=== PATIENT | male | born 1955 | race Caucasian/White ===

== ENCOUNTER → 2017-01-03 | Day surgery (SDC) | payer MEDICARE, MEDICAID ==
[~2017-01-03] VITALS: Ht 167.6 cm; Wt 89.2 kg
[~2017-01-03] MED LIST: AMLO5TAB4 PO; AMLODIPINE DAILY; ASPI81TA3 PO; ASPIRIN DAILY; ATEN100T PO; ATENOLOL DAILY; CLON-379 PO; CLONIDINE; DOCU-159 PO; EPHEDrine SULFATE 50 MG/5 ML SYG ONE; FENO145T19 PO; FENOFIBRATE; FURO40TA4 PO; HYDR-3672 PO; HYDR-906 PO; INSULIN; LORA10TA3 PO; LOSARTAN DAILY; NOVMIX SC; OMEPRAZOLE DAILY; PRAV40TA76 PO; PROPOFOL 40 ML ONE; SEVE800T7 PO; TRAZ50TA18 PO; [UNRECOGNIZED DRUG - OTHER]
[2017-01-03 08:42] VITALS: Ht 167.6 cm; Wt 89.2 kg
[2017-01-03 09:24] VITALS: BP 145/65; PULSE 68; RESP 11
--- NOTE | 2017-01-03 09:42 | OPPN ---
Date/Time of Note Date/Time of Note DATE: 01/03/17 TIME: 09:41 Operative Report Preoperative Diagnosis Chronic heartburn Dysphagia Screening colonoscopy Postoperative Diagnosis Hiatal hernia Reflux esophagitis with erosions Gastritis Internal hemorrhoids No colon neoplasm is identified Operation/Procedure Performed Esophagogastroduodenoscopy and biopsy Colonoscopy Surgeon see signature line patient assistant None Anesthesia: MAC Estimated blood loss: none Transfusion Required none Specimen Gastric mucosal biopsy Grafts/Implants none Complications none LEONID LOPEZ MD Jan 03, 2017 09:42
--- NOTE | 2017-01-03 09:42 | OPPN ---
Date/Time of Note Date/Time of Note DATE: 01/03/17 TIME: 09:41 Operative Report Preoperative Diagnosis Chronic heartburn Dysphagia Screening colonoscopy Postoperative Diagnosis Hiatal hernia Reflux esophagitis with erosions Gastritis Internal hemorrhoids No colon neoplasm is identified Operation/Procedure Performed Esophagogastroduodenoscopy and biopsy Colonoscopy Surgeon see signature line timber management assistant None Anesthesia: MAC Estimated blood loss: none Transfusion Required none Specimen Gastric mucosal biopsy Grafts/Implants none Complications none LEONID LOPEZ MD Jan 03, 2017 09:42
--- NOTE | 2017-01-03 09:42 | OPPN ---
Date/Time of Note Date/Time of Note DATE: 01/03/17 TIME: 09:41 Operative Report Preoperative Diagnosis Chronic heartburn Dysphagia Screening colonoscopy Postoperative Diagnosis Hiatal hernia Reflux esophagitis with erosions Gastritis Internal hemorrhoids No colon neoplasm is identified Operation/Procedure Performed Esophagogastroduodenoscopy and biopsy Colonoscopy Surgeon see signature line general assistant None Anesthesia: MAC Estimated blood loss: none Transfusion Required none Specimen Gastric mucosal biopsy Grafts/Implants none Complications none LEONID LOPEZ MD Jan 03, 2017 09:42
--- NOTE | 2017-01-03 09:59 | GILP ---
DATE OF PROCEDURE: NAME OF PROCEDURES: 1. Esophagogastroduodenoscopy and biopsy. 2. Colonoscopy. SURGEON: Leonid Cortez MD PREOPERATIVE DIAGNOSES: 1. Chronic heartburn. 2. Dysphagia. 3. Screening colonoscopy. POSTOPERATIVE DIAGNOSES: 1. Hiatal hernia with reflux esophagitis and erosions. 2. Gastritis with erosions. 3. Gastric mucosal biopsies were taken for Helicobacter pylori test. 4. Colonoscopy all the way to the cecum. 5. Internal hemorrhoids. 6. No colon neoplasm was identified. INDICATION FOR THE PROCEDURE: Mr. David Davis is a 61-year-old male patient who had chronic heartbur n associated with dysphagia. He also needed a screening colonoscopy. The procedures and possible complications were well explained to the patient. He understood and con sented to the procedure. DESCRIPTION OF PROCEDURE: Under the influence of anesthesia, the gastroscope was carefully introduc ed into the esophagus and under direct vision, it was advanced to the stomach and through the pyloru s into the duodenal bulb and descending duodenum. FINDINGS: ESOPHAGUS: The patient had hiatal hernia and reflux esophagitis with erosions. STOMACH: He had gastritis with erosions. Gastric mucosal biopsies were taken for H. pylori test. DUODENUM: Normal. The colonoscope was carefully introduced in the rectum and under direct vision, it was advanced all the way to the cecum. FINDINGS: The patient had internal hemorrhoids. No colon neoplasm was identified. He tolerated the procedures very well and there was no complication from the procedures. At the end of the procedure, he was awake with stable vital signs and he was discharged home to the care of hi s family. IMPRESSION: Please see postoperative diagnoses. PLAN: 1. Continue omeprazole. 2. Add Zantac 300 mg p.o. at bedtime. 3. Await H. pylori test report. Dictated By: LEONID DUOGHERTY/VIRGIL Conf#: [id number] DID#: [id number]
[2017-01-03 10:00] VITALS: BP 82/55
[2017-01-03 10:24] VITALS: BP 133/46; RESP 14
== END | disposition home or self-care (01) ==
LOC: UNMERGE 08:08 → MERGE 08:08 → GIL 08:08
PROVIDERS: ATTEND Internal Medicine Gastroenterology
DX: Z12.11 Encounter for screening for malignant neoplasm of colon (principal); K44.9 Diaphragmatic hernia without obstruction or gangrene; K29.60 Other gastritis without bleeding; K64.8 Other hemorrhoids; K21.0 Gastro-esophageal reflux disease with esophagitis; I10 Essential (primary) hypertension; E11.9 Type 2 diabetes mellitus without complications; E78.5 Hyperlipidemia, unspecified; I12.0 Hypertensive chronic kidney disease with stage 5 chronic kidney disease or end stage renal disease; N18.6 End stage renal disease; Z99.2 Dependence on renal dialysis
CPT/HCPCS: 43239; 45378; 82962; 87081; G0121

== ENCOUNTER 2018-05-07 15:43 | Inpatient (IN) | payer MEDICARE, MEDICAID ==
[~2018-05-07] VITALS: Ht 180.3 cm; Wt 89.0 kg
[~2018-05-07 15:43] MED LIST changes: +ASPI-903 PO; -ASPI81TA3 PO; -EPHEDrine SULFATE 50 MG/5 ML SYG ONE; -FENO145T19 PO; +FENO145T37 PO; +HYDR-4011 PO; -HYDR-906 PO; -PROPOFOL 40 ML ONE; +TRAZ-111 PO; -TRAZ50TA18 PO
--- NOTE | 2018-05-07 16:34 | ERD ---
ER Documentation Chief Complaint Chief Complaint bib ra 81 from dialysis center, syncope pre dialysis, helped to the ground HPI 52-year-old male history of diabetes, hypertension, hyperlipidemia and end-stage renal disease on dialysis M// resents ED via rescue ambulance for evaluation of weakness and syncope. Patient was just discharged yesterday from [facility] after a 5-day admission for chills. Patient was diagnosed with DVT of the left lower extremity and discharged on Eliquis which has not yet filled. Today he was at dialysis but when called from the waiting room was unable to stand up from the chair due to generalized weakness and apparently had brief loss of consciousness. His blood pressure was found to be low and paramedics were called; improved after normal saline bolus. Denies chest pain, palpitat ions, shortness of breath, abdominal pain, nausea or vomiting. Since discharge from the hospital he has had mild lightheadedness and dizziness but no no headache or visual changes. Ongoing left lower extremity weakness but no other new focal weakness or numbness. No URI symptoms, cough or hemoptysis. Denies leg pain or swelling. No fevers or chills. In contrast to the triage note there was no syncope. ROS All systems reviewed and are negative except as per history of present illness. Medications Home Meds Active Scripts Apixaban* (Eliquis*) 5 Mg Tablet, 5 MG PO BID, #60 TAB Prov:LESLEE MURPHY V. CLINICAL NURSING DIRECTOR 05/09/18 Hydralazine Hcl* (Hydralazine Hcl*) 50 Mg Tab, 50 MG PO Q8 for 30 Days, TAB Prov:MANUEL BRANHAM 01/31/16 Reported Medications Insulin Aspart (Novolog Mix (70/30)) 100 Units/Ml Soln, 45 SC WITH BREAKFAST DINNE, EA 01/25/16 Loratadine* (Loratadine*) 10 Mg Tablet, 10 MG PO DAILY, #30 TAB 01/25/16 Furosemide* (Furosemide*) 40 Mg Tablet, 40 MG PO BID, TAB 01/25/16 Fenofibrate Nanocrystallized* (Fenofibrate*) 145 Mg Tablet, 145 MG PO DAILY, TAB 01/25/16 Docusate Sodium* (Docusate Sodium*) 100 Mg Capsule, 100 MG PO BID, #60 CAP 01/25/16 Clonidine Hcl* (Clonidine Hcl*) 0.1 Mg Tab, 0.1 MG PO DAILY PRN for PRN, TAB 01/25/16 Atenolol* (Atenolol*) 100 Mg Tablet, 100 MG PO DAILY, #30 TAB 01/25/16 Aspirin* (Aspirin* Chew) 81 Mg Tab.chew, 81 MG PO DAILY, TAB.CHEW 01/25/16 Amlodipine Besylate* (Norvasc*) 5 Mg Tablet, 5 MG PO DAILY, TAB 01/25/16 Trazodone Hcl* (Trazodone Hcl*) 50 Mg Tablet, 50 MG PO DAILY PRN for PRN, #30 TAB 01/25/16 Sevelamer Carbonate* (Renvela*) 800 Mg Tablet, 2.4 GM PO WITH MEALS, TAB 01/25/16 Pravastatin Sodium* (Pravastatin Sodium*) 40 Mg Tablet, 40 MG PO DAILY, TAB 01/25/16 Hydrocodone/Acetaminophen ([place] 5-325 Tablet) 1 Each Tablet, 1 EACH PO DAILY PRN for PRN, TAB 01/25/16 Discontinued Reported Medications [Aspirin Daily] No Conflict Check 01/03/17 [Travastatin Daily] No Conflict Check 01/03/17 [Fenofibrate Daily] No Conflict Check 01/03/17 [Insulin] No Conflict Check 01/03/17 [Atenolol Daily] No Conflict Check 01/03/17 [Amlodipine Daily] No Conflict Check 01/03/17 [Losartan Daily] No Conflict Check 01/03/17 [Clonidine Daily] No Conflict Check 01/03/17 [Omeprazole Daily] No Conflict Check 01/03/17 Allergies Allergies: Coded Allergies: No Known Drug Allergies (Unverified Allergy, Unknown, 01/08/17) PMhx/Soc Reviewed in chart. As per HPI. History of Surgery: Yes (CHOLECYSTECTOMY, LT. SHOULDER, LT. TOE, LT. HAND) Anesthesia Reaction: No Hx Neurological Disorder: Yes (STROKE 2008) Hx Respiratory Disorders: No Hx Cardiac Disorders: No Hx Psychiatric Problems: No Hx Miscellaneous Medical Probl: Yes (HTN, HYPERLIPIDEMIA, HTN) Hx Alcohol Use: No Hx Substance Use: No Hx Tobacco Use: No Smoking Status: Never smoker FmHx No sudden cardiac or cancer Physical Exam Vitals Temperature: 98.3. Pulse: 65. Respirations: 18. Blood pressure 103/52. O2 saturation 100%. Physical Exam Const: Moderate distress. Head: Atraumatic Eyes: Normal Conjunctiva. Extraocular movements are intact. Pupils are equal reactive. ENT: Normal External Ears, Nose and Mouth. Neck: Full range of motion. No JVD. No meningismus. Resp: Breath sounds are diminished at the bases with mild crackles but no rhonchi or wheezes. Cardio: Regular rate and rhythm, I/ systolic murmur. Abd: Soft, non tender, non distended. No rebound or guarding. No masses or abnormal pulsations. Normal bowel sounds Skin: No petechiae or rashes Back: No midline or flank tenderness Ext: Left lower extremity swelling but no tenderness. Pulses 4+ in all extremities. Neur: Awake and alert. Cranial nerves II through XII are grossly intact. No focal deficit observed. Psych: Anxious but not depressed. Result Diagram: 05/09/1851905/09/18519 Results 24 hrs Laboratory Tests Test 05/07/18 16:00 05/07/18 16:40 Hepatitis B Surface Antigen NEGATIVE White Blood Count 8.8 10^3/ul Red Blood Count 2.72 10^6/ul Hemoglobin 8.4 g/dl Hematocrit 26.1 % Mean Corpuscular Volume 96.0 fl Mean Corpuscular Hemoglobin 30.9 pg Mean Corpuscular Hemoglobin Concent 32.2 g/dl Red Cell Distribution Width 12.7 % Platelet Count 223 10^3/UL Mean Platelet Volume 11.8 fl Immature Granulocytes % 0.300 % Neutrophils % 65.0 % Lymphocytes % 23.5 % Monocytes % 8.4 % Eosinophils % 2.5 % Basophils % 0.3 % Nucleated Red Blood Cells % 0.0 /100WBC Immature Granulocytes # 0.030 10^3/ul Neutrophils # 5.7 10^3/ul Lymphocytes # 2.1 10^3/ul Monocytes # 0.7 10^3/ul Eosinophils # 0.2 10^3/ul Basophils # 0.0 10^3/ul Nucleated Red Blood Cells # 0.0 10^3/ul Prothrombin Time 14.6 Sec Prothrombin Time Ratio 1.1 INR International Normalized Ratio 1.13 Activated Partial Thromboplast Time 33.7 Sec Sodium Level 138 mmol/L Potassium Level 5.2 mmol/L Chloride Level 100 mmol/L Carbon Dioxide Level 21 mmol/L Anion Gap 17 Blood Urea Nitrogen 67 mg/dl Creatinine 11.09 mg/dl Est Glomerular Filtrat Rate mL/min 5 mL/min Glucose Level 229 mg/dl Calcium Level 8.6 mg/dl Troponin I < 0.012 ng/ml Procedures/MDM DOCUMENTS REVIEWED: ED nurse, [facility]. LAB INTERPRETATION: CBC: Anemia with H/H8 0.4/26.1. Chemistry: Elevated BUN/creatinine consistent with the patient's history of end-stage renal disease on dialysis. Borderline elevated potassium of 5.2. Mild hyperglycemia of 229 mg/dL. Troponin is negative. INR is not elevated. EKG: Time: 16:32. His rhythm. Ventricular rate 64. Left ventricular hypertrophy with QRS widening. Normal [place] interval. Left axis deviation. No acute ST elevation or depression. No ectopy. My Interpretation IMAGING: Chest AP portable: The cardiac silhouette is normal. The costophrenic angles are clear. Aortic calcification. No effusions or infiltrates. No mediastinal widening. My interpretation. PROCEDURE: CT Brain without contrast. CLINICAL INDICATION: Dizziness and syncope. TECHNIQUE: A CT of the brain was performed on a GE 64-slice CT scanner utilizing axial imaging from the skull base through the vertex without intravenous contrast. Multiplanar reformatted images were made. One or more the following dose reduction techniques were utilized: Automated exposure control, adjustment of the mA/ or kV according to patient's size, or use of iterative reconstruction technique. DICOM images are available for review. The CTDIvol is 37.4 mGy and the DLP is 634.2 mGycm. COMPARISON: None. FINDINGS: There is no intracranial hemorrhage, mass effect, or midline shift. No extra- axial fluid collection is seen. Mild atrophy is identified with compensatory ventricular and sulcal enlargement. Mild decreased attenuation is seen in the periventricular and deep white matter, compatible with microvascular ischemic disease. Note is made of atherosclerotic calcifications anomaly within the intracranial carotid arteries but within the anterior cerebral arteries. The holliday white matter differentiation is well preserved with no acute infarct detected. The osseous structures and visualized paranasal sinuses are unremarkable. IMPRESSION: 1. No evidence of acute intracranial pathology. 2. Mild diffuse atrophy. 3. There is mild microvascular ischemic disease in the periventricular and deep white matter. RPTAT: PP .Felicia Ingram MD, MD Date Time Electronically viewed and signed by .Felicia Ingram MD, MD on 05/07/2018 19:40 .H/ MEDICAL DECISION MAKIN-year-old male history of diabetes, hypertension, hyperlipidemia and end-stage renal disease on dialysis M/W/F resents ED via rescue ambulance for evaluation of weakness and syncope. [facility] for chills and left lower extremity weakness; diagnosed with DVT but has not yet filled his prescription for Eliquis. Patient apparently experienced acute onset of weakness and did have a witnessed syncope. Mild prehospital hypotension resolved with intravenous normal saline. CBC reveals significant anemia likely secondary to patient's end-stage renal disease and there is no signs of acute blood loss including GI bleeding. Chemistry reveals borderline hyperkalemia and mild hyperglycemia with markedly elevated BUN/creatinine. No cardiac dysrhythmia currently. No acute ischemic EKG changes, elevated troponin, chest pain or acute coronary syndrome. No focal neurologic deficit or signs of C VA/TIA however because the patient is anticoagulated and at increased risk for spontaneous intracranial hemorrhage due to end-stage renal disease a CT of the brain is performed which is unremarkable for mass, bleed or ischemia. No fever, leukocytosis or signs of an occult infectious process. Abdominal exam is benign without significant tenderness, rebound, guarding, signs of peritonitis or abdom inal aortic aneurysm. Syncope likely vasovagal complicated by uremia. Patient will be admitted to telemetry observation for urgent dialysis, further evaluation and management. CALLS/CONSULTS: Time: 18:30, Dr. Dr. Panda. Recommends admission and will arrange for dialysis tonight PATIENT CARE TRANSITIONED: Time: 18:23. Amde, Counseled patient regarding diagnosis, diagnostic results and plan for admission. Departure Diagnosis: Primary Impression: Acute weakness Additional Impressions: Syncope Syncope type: unspecified Qualified Codes: R55 - Syncope and collapse End stage renal disease on dialysis Deep vein thrombosis DVT location: lower extremity Affected thrombotic vein of extremity: unspecified vein of extremity Chronicity: unspecified Laterality: unspec ified laterality Qualified Codes: I82.409 - Acute embolism and thrombosis of unspecified deep veins of unspecified lower extremity Diabetes mellitus Diabetes mellitus type: type 2 Diabetes mellitus residential insulin use: with residential use Diabetes mellitus complication status: with unspecified complications Qualified Codes: E11.8 - Type 2 diabetes mellitus with unspecified complications; Z79.4 - intermediate manager (current) use of insulin Condition: Serious AISHA GREENE MD May 07, 2018 16:33
[2018-05-07] MEDS ORDERED: ONDANSETRON 4 MG INJ IV PRN ×2 (18:30→19:00)
[2018-05-07] MEDS ORDERED: ACETAMINOPHEN 325 MG TAB PO PRN ×2 (18:30→19:00)
[2018-05-07] MEDS ORDERED: HYDROCODONE/APAP (5/325) TAB PO PRN (19:00)
[2018-05-07] MEDS ORDERED: NACL 0.9% 3 ML SYG IV SCH (19:00)
[2018-05-07 20:45] VITALS: PULSE 64
[2018-05-07 21:00] VITALS: BP 130/60; PULSE 67; RESP 18
[2018-05-07 21:27] VITALS: Ht 180.3 cm; Wt 89.0 kg
[2018-05-07] MEDS: INSULIN ASPART [NOVOLOG] 3 ML PEN SC SCH (22:24)
[2018-05-07] MEDS: INSULIN GLARGINE [LANTus] (100 UNITS/ML) SYG SC SCH (22:24)
--- NOTE | 2018-05-07 23:34 | HP ---
Date/Time of Note Date/Time of Note DATE: 05/07/18 TIME: 23:34 Assessment/Plan VTE Prophylaxis Pharmacological prophylaxis: heparin Lines/Catheters IV Catheter Type (from Nrsg): Saline Lock Assessment/Plan Assessment/Plan 1. Syncope: Likely secondary to orthostatic hypotension -Check orthostatics -Head CT negative for acute findings. Obtain 2D echo and carotid Doppler ultrasound 2. ESRD on HD: Nephrology for dialysis (Dr. Panda) 3. Type 1 diabetes: Continue insulin 4. Hypertension: BP within acceptable range. Adjust meds as needed 5. Anemia: Likely secondary to renal failure and chronic disease. We will however check FOBT and iron/ferritin to workup for GI bleed and iron deficiency -Epogen per nephrology 6. Mild hyperkalemia: See #2 Result Diagram: 05/07/18 1640 05/07/18 1640 Results 24hrs Laboratory Tests Test 05/07/18 16:00 05/07/18 16:40 05/07/18 22:16 Hepatitis B Surface Antigen NEGATIVE White Blood Count 8.8 # Red Blood Count 2.72 #L Hemoglobin 8.4 #L Hematocrit 26.1 #L Mean Corpuscular Volume 96.0 Mean Corpuscular Hemoglobin 30.9 Mean Corpuscular Hemoglobin Concent 32.2 Red Cell Distribution Width 12.7 # Platelet Count 223 Mean Platelet Volume 11.8 H Immature Granulocytes % 0.300 Neutrophils % 65.0 Lymphocytes % 23.5 Monocytes % 8.4 Eosinophils % 2.5 Basophils % 0.3 Nucleated Red Blood Cells % 0.0 Immature Granulocytes # 0.030 Neutrophils # 5.7 Lymphocytes # 2.1 Monocytes # 0.7 Eosinophils # 0.2 Basophils # 0.0 Nucleated Red Blood Cells # 0.0 Prothrombin Time 14.6 Prothrombin Time Ratio 1.1 INR International Normalized Ratio 1.13 Activated Partial Thromboplast Time 33.7 Sodium Level 138 Potassium Level 5.2 H Chloride Level 100 Carbon Dioxide Level 21 Anion Gap 17 H Blood Urea Nitrogen 67 H Creatinine 11.09 H Est Glomerular Filtrat Rate mL/min 5 L Glucose Level 229 H Calcium Level 8.6 Troponin I < 0.012 Bedside Glucose 190 HPI/ROS Admit Date/Time Admit Date/Time May 07, 2018 at 18:27 Hx of Present Illness This is a 62-year-old male with a history of hypertension, type 1 diabetes, dyslipidemia, ESRD on HD who was sent from the dialysis center after he passed out. He said he got up from a seated position when his name was called for dialysis. He felt dizzy/lightheaded before passing out. Patient was sent to the ER for evaluation. No dialysis was done. Denied chest pain, palpitations, headache, visual disturbance prior to or after syncope. He said about a week ago he was having some shaking chills while he was at home. He did not seek help at that time. When he presented to ER, vitals were stable. Lab shows a potassium of 5.2, BUN 67, creatinine 11, glucose 230, hemoglobin 8.4, last hemoglobin from 2 years ago was 13.3. Patient denies hematemesis, or BRBPR or dark stool. He said he was not aware of diagnosis of anemia. Head CT in the ER was negative for acute findings. PMH/Family/Social Past Medical History Medical History: other (See HPI) Medications Current Medications Acetaminophen (Tylenol Tab) 650 mg ER BRIDGE PRN PO .MILD PAIN 1-3 OR TEMP; Start 05/07/18 at 18:30; Stop 05/08/18 at 18:29 IV Flush (NS 3 ml) 3 ml PER PROTOCOL IV ; Start 05/07/18 at 19:00 Ondansetron HCl (Zofran Inj) 4 mg Q6H PRN IV NAUSEA/VOMITING; Start 05/07/18 at 19:00 Acetaminophen (Tylenol Tab) 650 mg Q6H PRN PO .PAIN 1-3 OR TEMP; Start 05/07/18 at 19:00 Acetaminophen/ Hydrocodone Bitart ([place] (5/325)) 1 tab Q6H PRN PO .PAIN 4-6; Start 05/07/18 at 19:00 Diagnostic Test (Pha) (Accu-Chek) 1 ea 02 XX ; Start 05/08/18 at 02:00 Insulin Glargine (Lantus) 20 units DAILY@2000 SC Last administered on 05/07/18at 22:24; Admin Dose 20 UNITS; Start 05/07/18 at 20:00 Insulin Aspart (Novolog Insulin Pen) 7 unit WITH MEALS SC ; Start 05/08/18 at 08:00 Insulin Aspart (Novolog Insulin Pen) NOVOLOG *MILD* ALGORITHM WITH MEALS BEDTIME SC Last administered on 05/07/18at 22:24; Admin Dose 1 UNIT; Start 05/07/18 at 21:00 Coded Allergies: No Known Drug Allergies (Unverified Allergy, Unknown, 01/08/17) Past Surgical History Past Surgical Hx: other (See HPI) Family History Significant Family History: no pertinent family hx Social History Alcohol Use: none Smoking Status: Unknown if ever smoked Drug Use: none Exam/Review of Systems Vital Signs Vitals Vital Signs Date Temp Pulse Resp B/P (MAP) Pulse Ox O2 O2 Flow FiO2 Time Delivery Rate 05/07/18 97.6 67 18 130/60 95 21:00 (83) 05/07/18 Room Air 20:24 Exam Constitutional: alert, oriented, well developed Head: normocephalic, atraumatic Eyes: EOMI, PERRL Respiratory: clear to auscultation, normal air movement Cardiovascular: regular rate and rhythm, nl pulses Gastrointestinal: soft Extremities: other (Amputated left middle skull) INDIA JADE MD May 07, 2018 23:34
[2018-05-08] VITALS (40 sets, daily range): BP systolic 96–159; BP diastolic 7–78; PULSE 66–82; RESP 18–20
[2018-05-08] MEDS: ACCU-CHEK XX SCH (02:00)
[2018-05-08] MEDS: INSULIN ASPART [NOVOLOG] 3 ML PEN SC SCH ×7 (07:45→20:51)
[2018-05-08] MEDS: FENOFIBRATE 145 MG TAB PO SCH (08:17)
[2018-05-08] MEDS: FUROSEMIDE 40 MG TAB PO SCH ×2 (08:17→20:36)
[2018-05-08] MEDS: SEVELAMER CARBONATE 0.8 GM PKT PO SCH ×3 (08:17→17:31)
[2018-05-08] MEDS: ASPIRIN 81 MG TAB PO SCH (08:17)
[2018-05-08] MEDS ORDERED: NON-FORMULARY/PATIENT OWN MED (Pravastatin Sodium* 40 MG) PO SCH (09:00)
--- NOTE | 2018-05-08 10:33 | PN ---
Date/Time of Note Date/Time of Note DATE: 05/08/18 TIME: 10:30 Assessment/Plan VTE Prophylaxis Risk score (from Nsg)>0 risk: 2 SCD applied (from Nsg): Yes Pharmacological prophylaxis: apixaban Lines/Catheters IV Catheter Type (from Nrsg): AV fistula Assessment/Plan Hospital Course SUBJECTIVE: Lying in bed, no chest pain, palpitation, dizziness, cough, hemoptysis or others. OBJECTIVE: Vital signs-see below PHYSICAL EXAM: Constitutional: Well-developed, adequately built, lying in bed comfortably. Psych: nl mood/affect, no complaints Head: atraumatic, normocephalic Eyes: nl conjunctiva, nl sclera ENMT: mucosa pink and moist, nl external ears & nose Neck: non-tender, supple Respiratory: Diminished bibasilar, normal air movement Cardiovascular: nl pulses, regular rate and rhythm Gastrointestinal: non-tender, soft, bowel sounds active in all 4 quadrants. Musculoskeletal/extremities: nl extremities to inspection, motor strength equal bilaterally, no focal deficit. Normal pulses,no cyanosis, no edema. Neurological: Alert oriented 3,nl speech, nl strength Skin: nl turgor ASSESSMENT/PLAN: 62-year-old male with ESRD, on hemodialysis, dm,htn,anemia and recently diagnosed LLE DVT 5 days ago, unable to fill his eliquis rx, admitted with syncopal episode, happened at that HD clinic while patient was getting up from his chair when called for HD..... 1. Syncope, rule out etiology. -CT negative for stroke. EKG negative for arrhythmias -Pending carotid duplex.... -At this time, in light of DVT of lower extremity diagnosed 5 days ago, discharged from the hospital with Eliquis which was never filled from pt's end, there is a high threshold for developing PE. As such, we will proceed with a CTA chest with contrast with the plan of hemodialysis after contrast received, repeat lower extremity ultrasound. 2. Left lower extremity deep vein thrombosis, diagnosed 5 days ago. -Will initiate anticoagulation with Eliquis -Patient would need it for at least 3 months duration and his insurance would cover this medicine, however make sure with case management. 3. ESRD, on hemodialysis -Management per nephrology 4. Diabetes -Continue current insulin regimen and follow-up on A1c. 5. Hypertension - stable. Will resume patient's home medications. 6. Dyslipidemia -We will resume statin and fenofibrate. -Follow-up lipid panel 7. Hyperkalemia in light of ESRD -Patient will get dialyzed and management per nephrology 8. Anemia of ESRD -Continue oral iron. Epogen per nephrology team DVT treatment: Eliquis PUD prophylaxis: Not indicated CODE STATUS: Full code Diet: Carbohydrate controlled/renal diet. Disposition: Continue current medical management. Follow-up diagnostic tests ordered Patient was seen in collaboration with Dr. Montes De Oca. Result Diagram: 05/07/18 1640 05/07/18 1640 Results 24hrs Laboratory Tests Test 05/07/18 16:00 05/07/18 16:40 05/07/18 22:16 05/08/18 02:31 Hepatitis B Surface NEGATIVE Antigen White Blood Count 8.8 # Red Blood Count 2.72 #L Hemoglobin 8.4 #L Hematocrit 26.1 #L Mean Corpuscular 96.0 Volume Mean Corpuscular 30.9 Hemoglobin Mean Corpuscular 32.2 Hemoglobin Concent Red Cell 12.7 # Distribution Width Platelet Count 223 Mean Platelet Volume 11.8 H Immature 0.300 Granulocytes % Neutrophils % 65.0 Lymphocytes % 23.5 Monocytes % 8.4 Eosinophils % 2.5 Basophils % 0.3 Nucleated Red Blood 0.0 Cells % Immature 0.030 Granulocytes # Neutrophils # 5.7 Lymphocytes # 2.1 Monocytes # 0.7 Eosinophils # 0.2 Basophils # 0.0 Nucleated Red Blood 0.0 Cells # Prothrombin Time 14.6 Prothrombin Time 1.1 Ratio INR International 1.13 Normalized Ratio Activated 33.7 Partial Thromboplast Time Sodium Level 138 Potassium Level 5.2 H Chloride Level 100 Carbon Dioxide Level 21 Anion Gap 17 H Blood Urea Nitrogen 67 H Creatinine 11.09 H Est Glomerular 5 L Filtrat Rate mL/min Glucose Level 229 H Calcium Level 8.6 Troponin I < 0.012 Bedside Glucose 190 244 H Test 05/08/18 07:26 Bedside Glucose 181 Exam/Review of Systems Exam Vitals Vital Signs Date Temp Pulse Resp B/P (MAP) Pulse Ox O2 O2 Flow FiO2 Time Delivery Rate 05/08/18 74 08:22 05/08/18 97.9 20 132/62 100 Room Air 07:36 (85) Intake and Output 05/07/18 05/07/18 05/08/18 1515:00 23:00 07:00 IntakeIntake Total 240 ml OutputOutput Total 200 ml BalanceBalance 40 ml Results Results 24hrs Laboratory Tests Test 05/07/18 16:00 05/07/18 16:40 05/07/18 22:16 05/08/18 02:31 Hepatitis B Surface NEGATIVE Antigen White Blood Count 8.8 # Red Blood Count 2.72 #L Hemoglobin 8.4 #L Hematocrit 26.1 #L Mean Corpuscular 96.0 Volume Mean Corpuscular 30.9 Hemoglobin Mean Corpuscular 32.2 Hemoglobin Concent Red Cell 12.7 # Distribution Width Platelet Count 223 Mean Platelet Volume 11.8 H Immature 0.300 Granulocytes % Neutrophils % 65.0 Lymphocytes % 23.5 Monocytes % 8.4 Eosinophils % 2.5 Basophils % 0.3 Nucleated Red Blood 0.0 Cells % Immature 0.030 Granulocytes # Neutrophils # 5.7 Lymphocytes # 2.1 Monocytes # 0.7 Eosinophils # 0.2 Basophils # 0.0 Nucleated Red Blood 0.0 Cells # Prothrombin Time 14.6 Prothrombin Time 1.1 Ratio INR International 1.13 Normalized Ratio Activated 33.7 Partial Thromboplast Time Sodium Level 138 Potassium Level 5.2 H Chloride Level 100 Carbon Dioxide Level 21 Anion Gap 17 H Blood Urea Nitrogen 67 H Creatinine 11.09 H Est Glomerular 5 L Filtrat Rate mL/min Glucose Level 229 H Calcium Level 8.6 Troponin I < 0.012 Bedside Glucose 190 244 H Test 05/08/18 07:26 Bedside Glucose 181 Medications Medication Current Medications Acetaminophen (Tylenol Tab) 650 mg ER BRIDGE PRN PO .MILD PAIN 1-3 OR TEMP; Start 05/07/18 at 18:30; Stop 05/08/18 at 18:29 IV Flush (NS 3 ml) 3 ml PER PROTOCOL IV ; Start 05/07/18 at 19:00 Ondansetron HCl (Zofran Inj) 4 mg Q6H PRN IV NAUSEA/VOMITING; Start 05/07/18 at 19:00 Acetaminophen (Tylenol Tab) 650 mg Q6H PRN PO .PAIN 1-3 OR TEMP; Start 05/07/18 at 19:00 Acetaminophen/ Hydrocodone Bitart ([place] (5/325)) 1 tab Q6H PRN PO .PAIN 4-6; Start 05/07/18 at 19:00 Diagnostic Test (Pha) (Accu-Chek) 1 ea 02 XX ; Start 05/08/18 at 02:00 Insulin Glargine (Lantus) 20 units DAILY@2000 SC Last administered on 05/07/18 22:24; Admin Dose 20 UNITS; Start 05/07/18 at 20:00 Insulin Aspart (Novolog Insulin Pen) 7 unit WITH MEALS SC Last administered on 05/08/18 07:46; Admin Dose 7 UNIT; Start 05/08/18 at 08:00 Insulin Aspart (Novolog Insulin Pen) NOVOLOG *MILD* ALGORITHM WITH MEALS BEDTIME SC Last administered on 05/08/18 07:45; Admin Dose 2 UNIT; Start 05/07/18 at 21:00 Aspirin (Aspirin) 81 mg DAILY PO Last administered on 05/08/18 08:17; Admin Dose 81 MG; Start 05/08/18 at 09:00 Fenofibrate (Tricor) 145 mg DAILY PO Last administered on 05/08/18 08:17; Admin Dose 145 MG; Start 05/08/18 at 09:00 Furosemide (Lasix) 40 mg BID DIURETICS PO Last administered on 05/08/18 08:17; Admin Dose 40 MG; Start 05/08/18 at 06:00 Sevelamer Carbonate (Renvela) 2.4 gm WITH MEALS PO Last administered on 05/08/18 08:17; Admin Dose 2.4 GM; Start 05/08/18 at 08:00 Atorvastatin Calcium (Lipitor) 10 mg DAILY@21 PO ; Start 05/08/18 at 21:00 LESLEE MURPHY NP May 08, 2018 10:33
[2018-05-08] MEDS ORDERED: IOHEXOL 100 ML ONE (10:43)
[2018-05-08] MEDS ORDERED: SOD CHLORIDE 0.9% 100 ML ONE (10:43)
[2018-05-08] MEDS ORDERED: traZODone 50 MG TAB PO PRN (11:00)
--- NOTE | 2018-05-08 17:03 | CONS ---
Assessment/Plan Assessment/Plan Assessment/Plan (Daily) - ESRD on Hemodialysis @ [facility] [place] - Hypertension - Hyperkalemia - Recent admit due to Pnemonia - Recent Diagnosis of DVT - Dasilva's Cyst PLAN: - Patient had Dialysis on arrival - Was started on "eliquis" upon discharge from [facility] but did not fill the prescription - Post CT Head - On HD #2 now - Will review CT results - BP control - Monitor Potassium - H/H stable - On long Acting EPO as out patient no need for EPO at this point THANK YOU Adia RODRÍGUEZ Consultation Date/Type/Reason Admit Date/Time May 07, 2018 at 18:27 Date of Consultation: May 08, 2018 Type of Consult - Nephrology Reason for Consultation - ESRD on Hemodialysis @ [facility] [place] Date/Time of Note DATE: 05/08/18 TIME: 16:58 Constitutional: no complaints, improved Eyes: no complaints ENT: no complaints Respiratory: no complaints Cardiovascular: no complaints Gastrointestinal: no complaints Genitourinary: no complaints Skin: no complaints Past Medical History Medical History: coronary artery disease, hypertension, renal disease, other (See HPI) Home Meds Active Scripts Hydralazine Hcl* (Hydralazine Hcl*) 50 Mg Tab, 50 MG PO Q8 for 30 Days, TAB Prov:MANUEL BRANHAM 01/31/16 Reported Medications [Aspirin Daily] No Conflict Check 01/03/17 [Travastatin Daily] No Conflict Check 01/03/17 [Fenofibrate Daily] No Conflict Check 01/03/17 [Insulin] No Conflict Check 01/03/17 [Atenolol Daily] No Conflict Check 01/03/17 [Amlodipine Daily] No Conflict Check 01/03/17 [Losartan Daily] No Conflict Check 01/03/17 [Clonidine Daily] No Conflict Check 01/03/17 [Omeprazole Daily] No Conflict Check 01/03/17 Insulin Aspart (Novolog Mix (70/30)) 100 Units/Ml Soln, 45 SC WITH BREAKFAST DINNE, EA 01/25/16 Loratadine* (Loratadine*) 10 Mg Tablet, 10 MG PO DAILY, #30 TAB 01/25/16 Furosemide* (Furosemide*) 40 Mg Tablet, 40 MG PO BID, TAB 01/25/16 Fenofibrate Nanocrystallized* (Fenofibrate*) 145 Mg Tablet, 145 MG PO DAILY, TAB 01/25/16 Docusate Sodium* (Docusate Sodium*) 100 Mg Capsule, 100 MG PO BID, #60 CAP 01/25/16 Clonidine Hcl* (Clonidine Hcl*) 0.1 Mg Tab, 0.1 MG PO DAILY PRN for PRN, TAB 01/25/16 Atenolol* (Atenolol*) 100 Mg Tablet, 100 MG PO DAILY, #30 TAB 01/25/16 Aspirin* (Aspirin* Chew) 81 Mg Tab.chew, 81 MG PO DAILY, TAB.CHEW 01/25/16 Amlodipine Besylate* (Norvasc*) 5 Mg Tablet, 5 MG PO DAILY, TAB 01/25/16 Trazodone Hcl* (Trazodone Hcl*) 50 Mg Tablet, 50 MG PO DAILY PRN for PRN, #30 TAB 01/25/16 Sevelamer Carbonate* (Renvela*) 800 Mg Tablet, 2.4 GM PO WITH MEALS, TAB 01/25/16 Pravastatin Sodium* (Pravastatin Sodium*) 40 Mg Tablet, 40 MG PO DAILY, TAB 01/25/16 Hydrocodone/Acetaminophen ([place] 5-325 Tablet) 1 Each Tablet, 1 EACH PO DAILY PRN for PRN, TAB 01/25/16 Medications Current Medications IV Flush (NS 3 ml) 3 ml PER PROTOCOL IV ; Start 05/07/18 at 19:00 Ondansetron HCl (Zofran Inj) 4 mg Q6H PRN IV NAUSEA/VOMITING; Start 05/07/18 at 19:00 Acetaminophen (Tylenol Tab) 650 mg Q6H PRN PO .PAIN 1-3 OR TEMP; Start 05/07/18 at 19:00 Acetaminophen/ Hydrocodone Bitart ([place] (5/325)) 1 tab Q6H PRN PO .PAIN 4-6; Start 05/07/18 at 19:00 Diagnostic Test (Pha) (Accu-Chek) 1 ea 02 XX ; Start 05/08/18 at 02:00 Insulin Glargine (Lantus) 20 units DAILY@2000 SC Last administered on 05/07/18at 22:24; Admin Dose 20 UNITS; Start 05/07/18 at 20:00 Insulin Aspart (Novolog Insulin Pen) 7 unit WITH MEALS SC Last administered on 05/08/18 12:16; Admin Dose 7 UNIT; Start 05/08/18 at 08:00 Insulin Aspart (Novolog Insulin Pen) NOVOLOG *MILD* ALGORITHM WITH MEALS BEDTIME SC Last administered on 05/08/18at 12:15; Admin Dose 1 UNIT; Start 05/07/18 at 21:00 Aspirin (Aspirin) 81 mg DAILY PO Last administered on 05/08/18 08:17; Admin Dose 81 MG; Start 05/08/18 at 09:00 Fenofibrate (Tricor) 145 mg DAILY PO Last administered on 05/08/18 08:17; Ad min Dose 145 MG; Start 05/08/18 at 09:00 Furosemide (Lasix) 40 mg BID DIURETICS PO Last administered on 05/08/18 08:17; Admin Dose 40 MG; Start 05/08/18 at 06:00 Sevelamer Carbonate (Renvela) 2.4 gm WITH MEALS PO Last administered on 05/08/18 12:19; Admin Dose 2.4 GM; Start 05/08/18 at 08:00 Amlodipine Besylate (Norvasc) 5 mg DAILY PO ; Start 05/09/18 at 09:00 Atenolol (Tenormin) 100 mg DAILY PO ; Start 05/09/18 at 09:00 Docusate Sodium (Colace) 100 mg BID PO ; Start 05/08/18 at 21:00 Hydralazine HCl (Apresoline) 50 mg Q8 PO Last administered on 05/08/18at 13:14; Admin Dose 50 MG; Start 05/08/18 at 14:00 Loratadine (Claritin) 10 mg DAILY PO ; Start 05/09/18 at 09:00 Trazodone HCl (Desyrel) 50 mg DAILY PRN PO PAIN; Start 05/08/18 at 11:00 Atorvastatin Calcium (Lipitor) 40 mg HS PO ; Start 05/08/18 at 21:00 Fenofibrate (Tricor) 48 mg DAILY PO ; Start 05/09/18 at 09:00 Allergies: Coded Allergies: No Known Drug Allergies (Unverified Allergy, Unknown, 01/08/17) Past Surgical History Past Surgical Hx: other (See HPI) Family History Significant Family History: no pertinent family hx Social History Alcohol Use: none Smoking Status: Unknown if ever smoked Drug Use: none Exam/Review of Systems Exam Vitals Vital Signs Date Temp Pulse Resp B/P (MAP) Pulse Ox O2 O2 Flow FiO2 Time Delivery Rate 05/08/18 82 16:20 05/08/18 97.9 20 159/74 99 Room Air 15:26 (102) Intake and Output 05/07/18 05/07/18 05/08/18 1414:59 22:59 06:59 IntakeIntake Total 240 ml OutputOutput Total 200 ml BalanceBalance 40 ml Constitutional: alert, oriented Psych: no complaints Head: normocephalic Eyes: nl conjunctiva Respiratory: crackles/rales Cardiovascular: regular rate and rhythm, edema, systolic murmur Gastrointestinal: soft Results Result Diagram: 05/08/18 1141 05/08/18 1142 Results 24hrs Laboratory Tests Test 05/07/18 22:16 05/08/18 02:31 05/08/18 07:26 05/08/18 11:41 Bedside Glucose 190 244 H 181 White Blood Count 8.6 Red Blood Count 2.83 L Hemoglobin 8.9 L Hematocrit 27.0 L Mean Corpuscular 95.4 Volume Mean Corpuscular 31.4 Hemoglobin Mean Corpuscular 33.0 Hemoglobin Concent Red Cell 13.0 Distribution Width Platelet Count 227 Mean Platelet Volume 11.4 H Immature 0.200 Granulocytes % Neutrophils % 64.8 Lymphocytes % 20.1 Monocytes % 10.8 Eosinophils % 3.5 Basophils % 0.6 Nucleated Red Blood 0.0 Cells % Immature 0.020 Granulocytes # Neutrophils # 5.6 Lymphocytes # 1.7 Monocytes # 0.9 Eosinophils # 0.3 Basophils # 0.1 Nucleated Red Blood 0.0 Cells # Hemoglobin A1c 8.7 H Iron Level 64 Total Iron Binding 356 Capacity Percent Iron 18 L Saturation Ferritin 909.0 H Test 05/08/18 11:42 05/08/18 12:13 Sodium Level 142 Potassium Level 4.5 Chloride Level 101 Carbon Dioxide Level 29 Anion Gap 12 Blood Urea Nitrogen 35 #H Creatinine 7.33 #H Est Glomerular 8 L Filtrat Rate mL/min Glucose Level 138 # Calcium Level 9.2 Total Bilirubin 0.0 L Direct Bilirubin 0.00 Indirect Bilirubin 0.0 Aspartate Amino 21 Transf (AST/SGOT) Alanine 9 L Aminotransferase (AL T/SGPT) Alkaline Phosphatase 179 H Total Protein 7.5 Albumin 4.1 Globulin 3.40 H Albumin/Globulin 1.20 Ratio Triglycerides Level 368 H Cholesterol Level 119 LDL Cholesterol, 21 Calculated HDL Cholesterol 24 L Cholesterol/HDL 4.9 Ratio Thyroid Stimulating 0.143 L Hormone (TSH) Bedside Glucose 155 Medications Medication Current Medications IV Flush (NS 3 ml) 3 ml PER PROTOCOL IV ; Start 05/07/18 at 19:00 Ondansetron HCl (Zofran Inj) 4 mg Q6H PRN IV NAUSEA/VOMITING; Start 05/07/18 at 19:00 Acetaminophen (Tylenol Tab) 650 mg Q6H PRN PO .PAIN 1-3 OR TEMP; Start 05/07/18 at 19:00 Acetaminophen/ Hydrocodone Bitart ([place] (5/325)) 1 tab Q6H PRN PO .PAIN 4-6; Start 05/07/18 at 19:00 Diagnostic Test (Pha) (Accu-Chek) 1 ea 02 XX ; Start 05/08/18 at 02:00 Insulin Glargine (Lantus) 20 units DAILY@2000 SC Last administered on 05/07/18at 22:24; Admin Dose 20 UNITS; Start 05/07/18 at 20:00 Insulin Aspart (Novolog Insulin Pen) 7 unit WITH MEALS SC Last administered on 05/08/18 12:16; Admin Dose 7 UNIT; Start 05/08/18 at 08:00 Insulin Aspart (Novolog Insulin Pen) NOVOLOG *MILD* ALGORITHM WITH MEALS BEDTIME SC Last administered on 05/08/18 12:15; Admin Dose 1 UNIT; Start 05/07/18 at 21:00 Aspirin (Aspirin) 81 mg DAILY PO Last administered on 05/08/18 08:17; Admin Do se 81 MG; Start 05/08/18 at 09:00 Fenofibrate (Tricor) 145 mg DAILY PO Last administered on 05/08/18 08:17; Admin Dose 145 MG; Start 05/08/18 at 09:00 Furosemide (Lasix) 40 mg BID DIURETICS PO Last administered on 05/08/18at 08:17; Admin Dose 40 MG; Start 05/08/18 at 06:00 Sevelamer Carbonate (Renvela) 2.4 gm WITH MEALS PO Last administered on 05/08/18at 12:19; Admin Dose 2.4 GM; Start 05/08/18 at 08:00 Amlodipine Besylate (Norvasc) 5 mg DAILY PO ; Start 05/09/18 at 09:00 Atenolol (Tenormin) 100 mg DAILY PO ; Start 05/09/18 at 09:00 Docusate Sodium (Colace) 100 mg BID PO ; Start 05/08/18 at 21:00 Hydralazine HCl (Apresoline) 50 mg Q8 PO Last administered on 05/08/18at 13:14; Admin Dose 50 MG; Start 05/08/18 at 14:00 Loratadine (Claritin) 10 mg DAILY PO ; Start 05/09/18 at 09:00 Trazodone HCl (Desyrel) 50 mg DAILY PRN PO PAIN; Start 05/08/18 at 11:00 Atorvastatin Calcium (Lipitor) 40 mg HS PO ; Start 05/08/18 at 21:00 Fenofibrate (Tricor) 48 mg DAILY PO ; Start 05/09/18 at 09:00 MELIA EWING MD May 08, 2018 17:03
[2018-05-08] MEDS ORDERED: DEXTROSE 50% 50 ML SYRINGE IV PRN ×2 (18:00)
[2018-05-08] MEDS ORDERED: GLUCOSE GEL 15 GRAM TUBE BUCCAL PRN (18:00)
[2018-05-08] MEDS ORDERED: GLUCAGON 1 MG INJ IM PRN (18:00)
[2018-05-08] MEDS ORDERED: GLUCOSE GEL 15 GRAM TUBE PO PRN ×2 (18:00)
[2018-05-08] MEDS: APIXABAN 5 MG TABLET PO SCH (20:50)
[2018-05-08] MEDS: DOCUSATE SODIUM 100 MG CAP PO SCH (20:50)
[2018-05-08] MEDS ORDERED: ATORVASTATIN 10 MG TAB PO SCH (21:00)
[2018-05-08] MEDS ORDERED: ATORVASTATIN 40 MG TAB PO SCH (21:00)
--- NOTE | 2018-05-08 21:06 | RADRPT ---
Echocardiogram Report Patient Name: Gibson FISHER ID: [id number] : 1955 (62y 5m)Study Date: 05/08/2018 8:39:01 AM Gender: MAccession #: [id number] Tech: Erica Tobar [facility] Location: [facility] Ref.Physician: INDIA JADE Height(Cm): BSA: Weight(Kg): Quality: AdequateAccount #: Procedures: Echocardiographic Report: Transthoracic echocardiogram with complete 2D, M-Mode, and doppler examination. Indications: Syncope. Measurements: 2D/M Mode Doppler Measurement Value Normal Range Measurement Value Normal Range LVIDd 2D 4.7 [ 4.2 - 5.8 ] cm AV Peak Teddy 1.4 [ 100.0 - 170.0 ] cm/sec LVIDs 2D 3.1 [ 2.5 - 4.0 ] cm AV Peak PG 8.0 [ 2.0 - 9.0 ] mmHg LVPWd 2D 1.4 [ 0.6 - 1.0 ] cm AI Peak PG 42.0 mmHg IVSd 2D 1.3 [ 0.6 - 1.0 ] cm AI Peak Teddy 3.2 cm/sec AoR Diam 2D 3.3 [ 2.6 - 3.4 ] cm AI PHT 464.0 msec EDV 2D 99.8 [ 62.0 - 150.0 ] ml LVOT Peak Teddy 0.9 [ 70.0 - 110.0 ] cm/sec ESV 2D 38.5 [ 21.0 - 61.0 ] ml LVOT Peak PG 3.0 [ 2.0 - 6.0 ] mmHg EF 2D 61.4 [ 52.0 - 72.0 ] percent MV E Peak Teddy 0.7 [ 60.0 - 130.0 ] cm/sec LA Dimen 2D 4.5 [ 3.0 - 4.0 ] cm MV A Peak Teddy 1.0 [ 100.0 - 120.0 ] cm/sec MV E/A 0.7 [ 0.8 - 1.5 ] ratio MV Decel Time 180 [ 104 - 258 ] msec Lat E` Teddy 0.1 [ 10.0 - 15.0 ] cm/sec Lateral E/E` 8.4 [ 1.0 - 2.0 ] ratio MV E/A 0.7 [ 0.8 - 1.5 ] ratio Findings: Left Ventricle: Normal left ventricular systolic function. Normal left ventricular cavity size. Moderate concentric left ventricular hypertrophy. Ejection fraction is visually estimated at 60-65 %. Tissue Doppler/Mitral Doppler indices are consistent with impaired relaxation (Stage I diastolic dysfunction). Right Ventricle: Normal right ventricular size. Normal right ventricular systolic function. Left Atrium: There is mild enlargement of left atrium. Right Atrium: The right atrium is normal in size. Mitral Valve: Mitral valve leaflets appear mildly thickened. Moderate mitral annular calcification. Trace mitral regurgitation. Aortic Valve: No hemodynamically significant aortic stenosis by doppler. Aortic cusps appear mildly calcified. Mild aortic valve regurgitation. Tricuspid Valve: Normal appearance of the tricuspid valve. Unable to obtain RVSP due to minimal presence of tricuspid regurgitation. Pulmonic Valve: Normal pulmonic valve appearance. Pericardium: Normal pericardium with no significant pericardial effusion. Aorta: Normal aortic root. IVC: Normal size and normal respiratory collapse consistent with normal right atrial pressure. Conclusions: Normal left ventricular systolic function. Normal left ventricular cavity size. Moderate concentric left ventricular hypertrophy. Ejection fraction is visually estimated at 60-65 %. Tissue Doppler/Mitral Doppler indices are consistent with impaired relaxation (Stage I diastolic dysfunction). There is mild enlargement of left atrium. Mitral valve leaflets appear mildly thickened. Moderate mitral annular calcification. Trace mitral regurgitation. No hemodynamically significant aortic stenosis by doppler. Aortic cusps appear mildly calcified. Mild aortic valve regurgitation. Normal appearance of the tricuspid valve. Unable to obtain RVSP due to minimal presence of tricuspid regurgitation. Electronically Signed By: Reagan Gamez 2018-05-08 21:05:48 PST
[2018-05-08] MEDS: INSULIN GLARGINE [LANTus] (100 UNITS/ML) SYG SC SCH (21:44)
[2018-05-09] VITALS (23 sets, daily range): BP systolic 94–130; BP diastolic 48–64; PULSE 62–80; RESP 16–20
[2018-05-09] MEDS: ACCU-CHEK XX SCH (02:00)
[2018-05-09] MEDS: FUROSEMIDE 40 MG TAB PO SCH ×2 (05:19→17:09)
[2018-05-09] MEDS: SEVELAMER CARBONATE 0.8 GM PKT PO SCH ×3 (08:01→17:10)
[2018-05-09] MEDS: INSULIN ASPART [NOVOLOG] 3 ML PEN SC SCH ×6 (08:03→17:15)
[2018-05-09] MEDS ORDERED: AMLODIPINE 5 MG TAB PO SCH (09:00)
[2018-05-09] MEDS ORDERED: ATENOLOL 100 MG TAB PO SCH (09:00)
[2018-05-09] MEDS ORDERED: LORATADINE 10 MG TAB PO SCH (09:00)
[2018-05-09] MEDS ORDERED: FENOFIBRATE 48 MG TAB PO SCH (09:00)
[2018-05-09] MEDS: DOCUSATE SODIUM 100 MG CAP PO SCH (09:16)
[2018-05-09] MEDS: APIXABAN 5 MG TABLET PO SCH (09:16)
[2018-05-09] MEDS: ASPIRIN 81 MG TAB PO SCH (09:17)
[2018-05-09] MEDS: FENOFIBRATE 145 MG TAB PO SCH (09:19)
--- NOTE | 2018-05-09 09:29 | PDOCDIS ---
Discharge Instructions CONDITION [id number] Patient Condition: [id number] Stable HOME CARE INSTRUCTIONS: [id number] Your diet recommendation is: [id number] renal diet FOLLOW UP/APPOINTMENTS Follow-up Plan With outpatient hemodialysis clinic on Saturday for next scheduled dialysis. Follow-up with outpatient central supply technician Follow-up with primary care physician Please make sure you filling your prescription for Eliquis today and continue taking it for 3 months. LESLEE MURPHY NP May 09, 2018 09:29
[2018-05-09] MEDS ORDERED: APIX5TAB PO (09:31)
--- NOTE | 2018-05-09 09:42 | DS ---
Date/Time of Note Date/Time of Note DATE: 05/09/18 TIME: 09:37 Discharge Summary Admission/Discharge Info Admit Date/Time May 07, 2018 at 18:27 Discharge Date/Time Discharge Diagnosis 1. Syncope, likely vasovagal versus uremic etiology. Resolved 2. Left lower extremity deep vein thrombosis, diagnosed 5 days ago. 3. ESRD, on hemodialysis 4. Insulin-dependent diabetes 5. Hypertension 6. Dyslipidemia 7. Hyperkalemia in light of ESRD.resolved 8. Anemia of ESRD Patient Condition: Stable Consults , stonework tracer Procedures 04/27/2018. Chest x-ray. IMPRESSION: No acute disease. Calcified aorta consistent with atherosclerotic disease. 05/07/2018. CT brain without contrast. IMPRESSION: 1. No evidence of acute intracranial pathology. 2. Mild diffuse atrophy. 3. There is mild microvascular ischemic disease in the periventricular and deep white matter. 05/08/2018. Ultrasound bilateral lower extremity. IMPRESSION: 1. No sonographic evidence for deep venous thrombosis of the right left lower extremities. 2. 3.2 x 1 cm right popliteal cyst. 05/08/2018 IMPRESSION: 1. No evidence for pulmonary embolism. 2. No mass, lymphadenopathy or acute infiltrates. 3. A few scattered small pulmonary nodules measures up to 5 mm. No follow-up is recommended, if there is no history of malignancy. 4. Focal areas of ground-glass opacities in the posterior dependent portions of the bilateral lower lobes which could represent subsegmental atelectasis/mild scarring. 5. Small hiatal hernia. 2,22,019. Carotid ultrasound IMPRESSION: 1. No evidence for hemodynamically significant stenosis or occlusion. 2. Antegrade flow seen within the vertebral arteries bilaterally. 05/08/2018. 2D echocardiogram Conclusions: Normal left ventricular systolic function. Normal left ventricular cavity size. Moderate concentric left ventricular hypertrophy. Ejection fraction is visually estimated at 60-65 %. Tissue Doppler/Mitral Doppler indices are consistent with impaired relaxation (Stage I diastolic dysfunction). There is mild enlargement of left atrium. Mitral valve leaflets appear mildly thickened. Moderate mitral annular calcification. Trace mitral regurgitation. No hemodynamically significant aortic stenosis by doppler. Aortic cusps appear mildly calcified. Mild aortic valve regurgitation. Normal appearance of the tricuspid valve. Unable to obtain RVSP due to minimal presence of tricuspid regurgitation. Electronically Signed By: Reagan Gamez 2018-05-08 21:05:48 [facility] Hospital Course 62-year-old male with ESRD, on hemodialysis, dm,htn,anemia and recently diagnosed LLE DVT 5 days ago, unable to fill his eliquis rx, admitted with syncopal episode, happened at that HD clinic while patient was getting up from his chair when called for HD. Patient was ruled out for acute cardiovascular and neurovascular events. Patient was continued on anticoagulation in light of DVT of lower extremity diagnosed 5 days ago. A repeat ultrasound of the lower extremity did not reveal any clot. A CT angiography negative for pulmonary embolism. However, recommendation is to complete Eliquis of 3 months duration as he was just diagnosed with DVT 5 days ago. Patient was noted with worsening renal function arrival for which he got dialysis 3 times in a row. Renal function remained stable thereafter. Patient symptoms resolved. There was no blood pressure variance or blood sugar variance to explain his symptoms. Most likely his symptoms are possibly vasovagal or uremic secondary to ESRD. At this time, no further inpatient workup indicated. Patient is medically stable for discharge with outpatient follow-up. Approximately 60 minutes was spent on coordinating the discharge on this patient. Patient was seen in collaboration with DR.Abe Reji Agarwal Active Scripts Hydralazine Hcl* (Hydralazine Hcl*) 50 Mg Tab, 50 MG PO Q8 for 30 Days, TAB Prov:MANUEL BRANHAM 01/31/16 Reported Medications [Aspirin Daily] No Conflict Check 01/03/17 [Travastatin Daily] No Conflict Check 01/03/17 [Fenofibrate Daily] No Conflict Check 01/03/17 [Insulin] No Conflict Check 01/03/17 [Atenolol Daily] No Conflict Check 01/03/17 [Amlodipine Daily] No Conflict Check 01/03/17 [Losartan Daily] No Conflict Check 01/03/17 [Clonidine Daily] No Conflict Check 01/03/17 [Omeprazole Daily] No Conflict Check 01/03/17 Insulin Aspart (Novolog Mix (70/30)) 100 Units/Ml Soln, 45 SC WITH BREAKFAST DINNE, EA 01/25/16 Loratadine* (Loratadine*) 10 Mg Tablet, 10 MG PO DAILY, #30 TAB 01/25/16 Furosemide* (Furosemide*) 40 Mg Tablet, 40 MG PO BID, TAB 01/25/16 Fenofibrate Nanocrystallized* (Fenofibrate*) 145 Mg Tablet, 145 MG PO DAILY, TAB 01/25/16 Docusate Sodium* (Docusate Sodium*) 100 Mg Capsule, 100 MG PO BID, #60 CAP 01/25/16 Clonidine Hcl* (Clonidine Hcl*) 0.1 Mg Tab, 0.1 MG PO DAILY PRN for PRN, TAB 01/25/16 Atenolol* (Atenolol*) 100 Mg Tablet, 100 MG PO DAILY, #30 TAB 01/25/16 Aspirin* (Aspirin* Chew) 81 Mg Tab.chew, 81 MG PO DAILY, TAB.CHEW 01/25/16 Amlodipine Besylate* (Norvasc*) 5 Mg Tablet, 5 MG PO DAILY, TAB 01/25/16 Trazodone Hcl* (Trazodone Hcl*) 50 Mg Tablet, 50 MG PO DAILY PRN for PRN, #30 TAB 01/25/16 Sevelamer Carbonate* (Renvela*) 800 Mg Tablet, 2.4 GM PO WITH MEALS, TAB 01/25/16 Pravastatin Sodium* (Pravastatin Sodium*) 40 Mg Tablet, 40 MG PO DAILY, TAB 01/25/16 Hydrocodone/Acetaminophen (Tyler 5-325 Tablet) 1 Each Tablet, 1 EACH PO DAILY PRN for PRN, TAB 01/25/16 Follow-up Plan With outpatient hemodialysis clinic on Saturday for next scheduled dialysis. Follow-up with outpatient stonework tracer Follow-up with primary care physician Please make sure you filling your prescription for Eliquis today and continue taking it for 3 months. Primary Care Provider Not On Staff Doctor Pending Labs Laboratory Tests Test 05/08/18 11:41 05/08/18 11:42 05/08/18 12:13 05/08/18 17:25 White Blood 8.6 Count 10^3/ul (4.8-10 .8) Red Blood 2.83 Count 10^6/ul (4.70-6 .10) Hemoglobin 8.9 g/dl (14.0-18.0 ) Hematocrit 27.0 % (42.0-52.0) Mean 95.4 Corpuscular fl (82.0-101.0) Volume Mean 31.4 Corpuscular pg (29.0-33.0) Hemoglobin Mean 33.0 Corpuscular g/dl (32.0-37.0 Hemoglobin Conc ) ent Red Cell 13.0 Distribution % (11.5-14.5) Width Platelet Count 227 10^3/UL (140-41 5) Mean Platelet 11.4 Volume fl (7.4-10.4) Immature 0.200 Granulocytes % % (0.001-0.429) Neutrophils % 64.8 % (39.0-77.0) Lymphocytes % 20.1 % (15.0-51.0) Monocytes % 10.8 % (0.0-11.0) Eosinophils % 3.5 % (0.0-7.0) Basophils % 0.6 % (0.0-2.0) Nucleated Red 0.0 Blood Cells % /100WBC (0.0-0. 0) Immature 0.020 Granulocytes # 10^3/ul (0.0-0. 031) Neutrophils # 5.6 10^3/ul (1.6-7. 5) Lymphocytes # 1.7 10^3/ul (0.8-2. 9) Monocytes # 0.9 10^3/ul (0.3-0. 9) Eosinophils # 0.3 10^3/ul (0.0-0. 5) Basophils # 0.1 10^3/ul (0.0-0. 1) Nucleated Red 0.0 Blood Cells # 10^3/ul (0.0-0. 0) Hemoglobin A1c 8.7 % (0-5.9) Iron Level 64 ug/dl (35-150) Total Iron 356 Binding ug/dl (241-421) Capacity Percent Iron 18 % Saturation SAT (22-52) Ferritin 909.0 ng/ml (11.1-264 .0) Sodium Level 142 mmol/L (135-14 4) Potassium 4.5 Level mmol/L (3.5-5. 1) Chloride Level 101 mmol/L (97-110 ) Carbon Dioxide 29 Level mmol/L (21-31) Anion Gap 12 (5-13) Blood Urea 35 Nitrogen mg/dl (7-20) Creatinine 7.33 mg/dl (0.61-1. 24) Est Glomerular 8 mL/min (>60) Filtrat Rate mL/min Glucose Level 138 mg/dl (70-220) Calcium Level 9.2 mg/dl (8.4-10. 2) Total 0.0 Bilirubin mg/dl (0.2-1.3 ) Direct 0.00 Bilirubin mg/dl (0.00-0. 20) Indirect 0.0 Bilirubin mg/dl (0-1.1) Aspartate Amino 21 Transf (AST/SGO IU/L (15-46) T) Alanine 9 IU/L (13-69) Aminotransferas e (ALT/SGPT) Alkaline 179 Phosphatase IU/L (42-121) Total Protein 7.5 g/dl (6.1-8.1) Albumin 4.1 g/dl (3.3-4.9) Globulin 3.40 g/dl (1.3-3.2) Albumin/Globuli 1.20 n Ratio Triglycerides 368 Level mg/dl (0-149) Cholesterol 119 Level mg/dl (100-200 ) LDL 21 mg/dl Cholesterol, Calculated HDL 24 Cholesterol mg/dl (30-78) Cholesterol/HDL 4.9 RATIO Ratio Thyroid 0.143 Stimulating MIU/L (0.465-4 Hormone (TSH) .680) Bedside 155 137 Glucose mg/dL (70-220) mg/dL (70-220) Test 05/08/18 20:28 05/09/18 05:20 05/09/18 08:01 Bedside 155 177 Glucose mg/dL (70-220) mg/dL (70-220) White Blood 7.8 Count 10^3/ul (4.8-1 0.8) Red Blood 2.98 Count 10^6/ul (4.70- 6.10) Hemoglobin 9.2 g/dl (14.0-18. 0) Hematocrit 28.6 % (42.0-52.0) Mean 96.0 Corpuscular fl (82.0-101.0 Volume ) Mean 30.9 Corpuscular pg (29.0-33.0) Hemoglobin Mean 32.2 Corpuscular g/dl (32.0-37. Hemoglobin Conc 0) ent Red Cell 12.9 Distribution % (11.5-14.5) Width Platelet Count 237 10^3/UL (140-4 15) Mean Platelet 11.6 Volume fl (7.4-10.4) Immature 0.300 Granulocytes % % (0.001-0.429 ) Neutrophils % 47.3 % (39.0-77.0) Lymphocytes % 35.1 % (15.0-51.0) Monocytes % 12.7 % (0.0-11.0) Eosinophils % 4.0 % (0.0-7.0) Basophils % 0.6 % (0.0-2.0) Nucleated Red 0.0 Blood Cells % /100WBC (0.0-0 .0) Immature 0.020 Granulocytes # 10^3/ul (0.0-0 .031) Neutrophils # 3.7 10^3/ul (1.6-7 .5) Lymphocytes # 2.7 10^3/ul (0.8-2 .9) Monocytes # 1.0 10^3/ul (0.3-0 .9) Eosinophils # 0.3 10^3/ul (0.0-0 .5) Basophils # 0.1 10^3/ul (0.0-0 .1) Nucleated Red 0.0 Blood Cells # 10^3/ul (0.0-0 .0) Sodium Level 140 mmol/L (135-14 4) Potassium 4.0 Level mmol/L (3.5-5. 1) Chloride Level 95 mmol/L (97-110 ) Carbon Dioxide 31 Level mmol/L (21-31) Anion Gap 14 (5-13) Blood Urea 28 Nitrogen mg/dl (7-20) Creatinine 5.60 mg/dl (0.61-1. 24) Est Glomerular 10 Filtrat mL/min (>60) Rate mL/min Glucose Level 149 mg/dl (70-220) Calcium Level 9.1 mg/dl (8.4-10. 2) LESLEE MURPHY NP May 09, 2018 09:42
--- NOTE | 2018-05-09 10:44 | CONS ---
Assessment/Plan Assessment/Plan Assessment/Plan (Daily) - ESRD on Hemodialysis @ [facility] [place] - Hypertension - Hyperkalemia - Recent admit due to Pnemonia - Recent Diagnosis of DVT - Dasilva's Cyst PLAN: - Patient had Dialysis on arrival - Was started on "eliquis" upon discharge from [facility] but did not fill the prescription - Post CT Head - On HD #2 now - Will review CT results - BP control - Monitor Potassium - H/H stable - On long Acting EPO as out patient no need for EPO at this point - Feels well - No Dizziness / No PUGH - CT Head noted & reviewed - Will plan for Dialysis today - Agree with discharge post Dialysis - Will be on "eliquis" for next ~ 6 months - Next HD on saturday as out patient @ [facility] [place] Consultation Date/Type/Reason Admit Date/Time May 07, 2018 at 18:27 Initial Consult Date 05/08/18 Type of Consult - Nephrology Reason for Consultation - ESRD on hemodialysis Date/Time of Note DATE: 05/09/18 TIME: 10:41 24 HR Interval Summary Constitutional: no complaints, improved Exam/Review of Systems Exam Vitals Vital Signs Date Temp Pulse Resp B/P (MAP) Pulse Ox O2 O2 Flow FiO2 Time Delivery Rate 05/09/18 69 08:19 05/09/18 98.4 16 112/57 96 Room Air 07:26 (75) Intake and Output 05/08/18 05/08/18 05/09/18 1515:00 23:00 07:00 IntakeIntake Total 720 ml 450 ml OutputOutput Total 2200 ml 1700 ml BalanceBalance -2200 ml -980 ml 450 ml Constitutional: alert, oriented Eyes: nl conjunctiva Neck: supple, non-tender Respiratory: crackles/rales Cardiovascular: regular rate and rhythm, systolic murmur Gastrointestinal: soft Results Result Diagram: 05/09/18 0520 05/09/18 0520 Results 24hrs Laboratory Tests Test 05/08/18 11:41 05/08/18 11:42 05/08/18 12:13 05/08/18 17:25 White Blood Count 8.6 Red Blood Count 2.83 L Hemoglobin 8.9 L Hematocrit 27.0 L Mean Corpuscular 95.4 Volume Mean Corpuscular 31.4 Hemoglobin Mean Corpuscular 33.0 Hemoglobin Concent Red Cell 13.0 Distribution Width Platelet Count 227 Mean Platelet Volume 11.4 H Immature 0.200 Granulocytes % Neutrophils % 64.8 Lymphocytes % 20.1 Monocytes % 10.8 Eosinophils % 3.5 Basophils % 0.6 Nucleated Red Blood 0.0 Cells % Immature 0.020 Granulocytes # Neutrophils # 5.6 Lymphocytes # 1.7 Monocytes # 0.9 Eosinophils # 0.3 Basophils # 0.1 Nucleated Red Blood 0.0 Cells # Hemoglobin A1c 8.7 H Iron Level 64 Total Iron Binding 356 Capacity Percent Iron 18 L Saturation Ferritin 909.0 H Sodium Level 142 Potassium Level 4.5 Chloride Level 101 Carbon Dioxide Level 29 Anion Gap 12 Blood Urea Nitrogen 35 #H Creatinine 7.33 #H Est Glomerular 8 L Filtrat Rate mL/min Glucose Level 138 # Calcium Level 9.2 Total Bilirubin 0.0 L Direct Bilirubin 0.00 Indirect Bilirubin 0.0 Aspartate Amino 21 Transf (AST/SGOT) Alanine 9 L Aminotransferase (AL T/SGPT) Alkaline Phosphatase 179 H Total Protein 7.5 Albumin 4.1 Globulin 3.40 H Albumin/Globulin 1.20 Ratio Triglycerides Level 368 H Cholesterol Level 119 LDL Cholesterol, 21 Calculated HDL Cholesterol 24 L Cholesterol/HDL 4.9 Ratio Thyroid Stimulating 0.143 L Hormone (TSH) Bedside Glucose 155 137 Test 05/08/18 20:28 05/09/18 05:20 05/09/18 08:01 Bedside Glucose 155 177 White Blood Count 7.8 Red Blood Count 2.98 L Hemoglobin 9.2 L Hematocrit 28.6 L Mean Corpuscular 96.0 Volume Mean Corpuscular 30.9 Hemoglobin Mean Corpuscular 32.2 Hemoglobin Concent Red Cell 12.9 Distribution Width Platelet Count 237 Mean Platelet Volume 11.6 H Immature 0.300 Granulocytes % Neutrophils % 47.3 Lymphocytes % 35.1 Monocytes % 12.7 H Eosinophils % 4.0 Basophils % 0.6 Nucleated Red Blood 0.0 Cells % Immature 0.020 Granulocytes # Neutrophils # 3.7 Lymphocytes # 2.7 Monocytes # 1.0 H Eosinophils # 0.3 Basophils # 0.1 Nucleated Red Blood 0.0 Cells # Sodium Level 140 Potassium Level 4.0 Chloride Level 95 L Carbon Dioxide Level 31 Anion Gap 14 H Blood Urea Nitrogen 28 H Creatinine 5.60 H Est Glomerular 10 L Filtrat Rate mL/min Glucose Level 149 Calcium Level 9.1 Medications Medication Current Medications IV Flush (NS 3 ml) 3 ml PER PROTOCOL IV ; Start 05/07/18 at 19:00 Ondansetron HCl (Zofran Inj) 4 mg Q6H PRN IV NAUSEA/VOMITING; Start 05/07/18 at 19:00 Acetaminophen (Tylenol Tab) 650 mg Q6H PRN PO .PAIN 1-3 OR TEMP; Start 05/07/18 at 19:00 Acetaminophen/ Hydrocodone Bitart (Corona (5/325)) 1 tab Q6H PRN PO .PAIN 4-6 Last administered on 05/08/18at 23:43; Admin Dose 1 TAB; Start 05/07/18 at 19:00 Diagnostic Test (Pha) (Accu-Chek) 1 ea 02 XX ; Start 05/08/18 at 02:00 Insulin Glargine (Lantus) 20 units DAILY@2000 SC Last administered on 05/08/18at 21:44; Admin Dose 20 UNITS; Start 05/07/18 at 20:00 Insulin Aspart (Novolog Insulin Pen) 7 unit WITH MEALS SC Last administered on 05/09/18 08:03; Admin Dose 7 UNIT; Start 05/08/18 at 08:00 Insulin Aspart (Novolog Insulin Pen) NOVOLOG *MILD* ALGORITHM WITH MEALS BEDTIME SC Last administered on 05/09/18 08:03; Admin Dose 1 UNIT; Start 05/07/18 at 21:00 Aspirin (Aspirin) 81 mg DAILY PO Last administered on 05/09/18 09:17; Admin Dose 81 MG; Start 05/08/18 at 09:00 Fenofibrate (Tricor) 145 mg DAILY PO Last administered on 05/09/18 09:19; Admin Dose 145 MG; Start 05/08/18 at 09:00 Furosemide (Lasix) 40 mg BID DIURETICS PO Last administered on 05/09/18 05:19; Admin Dose 40 MG; Start 05/08/18 at 06:00 Sevelamer Carbonate (Renvela) 2.4 gm WITH MEALS PO Last administered on 05/09/18at 08:01; Admin Dose 2.4 GM; Start 05/08/18 at 08:00 Amlodipine Besylate (Norvasc) 5 mg DAILY PO Last administered on 05/09/18at 09:17; Admin Dose 5 MG; Start 05/09/18 at 09:00 Atenolol (Tenormin) 100 mg DAILY PO Last administered on 05/09/18at 09:17; Admin Dose 100 MG; Start 05/09/18 at 09:00 Docusate Sodium (Colace) 100 mg BID PO Last administered on 05/09/18at 09:16; Admin Dose 100 MG; Start 05/08/18 at 21:00 Hydralazine HCl (Apresoline) 50 mg Q8 PO Last administered on 05/09/18at 05:19; Admin Dose 50 MG; Start 05/08/18 at 14:00 Loratadine (Claritin) 10 mg DAILY PO Last administered on 05/09/18at 09:16; Admin Dose 10 MG; Start 05/09/18 at 09:00 Trazodone HCl (Desyrel) 50 mg DAILY PRN PO PAIN; Start 05/08/18 at 11:00 Atorvastatin Calcium (Lipitor) 40 mg HS PO Last administered on 05/08/18at 20:50 ; Admin Dose 40 MG; Start 05/08/18 at 21:00 Apixaban (Eliquis) 5 mg BID PO Last administered on 05/09/18at 09:16; Admin Dose 5 MG; Start 05/08/18 at 21:00 Miscellaneous Information 1 ea NOTE XX ; Start 05/08/18 at 18:00 Glucose (Glutose) 15 gm Q15M PRN PO DECREASED GLUCOSE; Start 05/08/18 at 18:00 Glucose (Glutose) 22.5 gm Q15M PRN PO DECREASED GLUCOSE; Start 05/08/18 at 18:00 Dextrose (D50w Syringe) 25 ml Q15M PRN IV DECREASED GLUCOSE; Start 05/08/18 at 18:00 Dextrose (D50w Syringe) 50 ml Q15M PRN IV DECREASED GLUCOSE; Start 05/08/18 at 18:00 Glucagon (Glucagen) 1 mg Q15M PRN IM DECREASED GLUCOSE; Start 05/08/18 at 18:00 Glucose (Glutose) 15 gm Q15M PRN BUCCAL DECREASED GLUCOSE; Start 05/08/18 at 18:00 MELIA EWING MD May 09, 2018 10:44
== END 2018-05-09 19:55 | disposition home or self-care (01) | DRG 312 ==
LOC: E/R 15:43 → 6WM 18:27
PROVIDERS: ADMIT Internal Medicine; ATTEND Internal Medicine
PROC: 5A1D70Z Performance of Urinary Filtration, Intermittent, Less than 6 Hours Per Day (ICD-10-PCS; 2018-05-07)
PROC: 5A1D70Z Performance of Urinary Filtration, Intermittent, Less than 6 Hours Per Day (ICD-10-PCS; 2018-05-08)
PROC: 5A1D70Z Performance of Urinary Filtration, Intermittent, Less than 6 Hours Per Day (ICD-10-PCS; principal; 2018-05-09)
DX: I95.1 Orthostatic hypotension (principal); N18.6 End stage renal disease; I12.0 Hypertensive chronic kidney disease with stage 5 chronic kidney disease or end stage renal disease; E11.22 Type 2 diabetes mellitus with diabetic chronic kidney disease; E87.5 Hyperkalemia; D63.1 Anemia in chronic kidney disease; E78.5 Hyperlipidemia, unspecified; I25.10 Atherosclerotic heart disease of native coronary artery without angina pectoris; D63.8 Anemia in other chronic diseases classified elsewhere; M71.20 Synovial cyst of popliteal space [Baker], unspecified knee; Z79.4 Long term (current) use of insulin; Z79.82 Long term (current) use of aspirin; Z99.2 Dependence on renal dialysis; Z90.49 Acquired absence of other specified parts of digestive tract; Z86.718 Personal history of other venous thrombosis and embolism; Z86.73 Personal history of transient ischemic attack (TIA), and cerebral infarction without residual deficits
CPT/HCPCS: 36415; 70450; 71045; 71275; 80048; 80053; 80061; 82270; 82728; 82962; 83036; 83540; 84443; 84484; 85025; 85610; 85730; 87081; 87340; 90935; 93005; 93306; 93880; 93970; J1815; Q9967

== ENCOUNTER 2018-09-04 19:31 | Emergency (ER) | payer MEDICARE, MEDICAID ==
[~2018-09-04] VITALS: Ht 167.6 cm; Wt 90.9 kg
[~2018-09-04 19:31] MED LIST changes: -AMLODIPINE DAILY; +APIX5TAB PO; -ASPIRIN DAILY; -ATENOLOL DAILY; -CLONIDINE; -FENOFIBRATE; -INSULIN; -LOSARTAN DAILY; -OMEPRAZOLE DAILY; -[UNRECOGNIZED DRUG - OTHER]
[2018-09-04 19:54] VITALS: Ht 167.6 cm; Wt 90.9 kg
--- NOTE | 2018-09-04 20:07 | ERD ---
ER Documentation Chief Complaint Chief Complaint PCP recommended pt to come to ED for bilateral calf pain x 1 week poss. DVT HPI 62-year-old male history of hypertension, diabetes, hyperlipidemia and end-stage renal disease on dialysis Saturday, Saturday and Saturday referred to the ED for evaluation of bilateral leg pain and possible DVT. Patient complains of several week history of calf pain which occurs upon awakening and walking. Denies swelling or redness. No chest pain, palpitations or shortness of breath. No fevers or chills. ROS All systems reviewed and are negative except as per history of present illness. Medications Home Meds Reported Medications Rosuvastatin Calcium (Rosuvastatin Calcium) 40 Mg Tablet, 40 MG PO QHS for 90 Days, #90 09/04/18 Sertraline Hcl* (Sertraline Hcl*) 50 Mg Tablet, 50 MG PO QHS for 30 Days, #30 09/04/18 Omeprazole* (Omeprazole*) 20 Mg Capsule.dr, 20 MG PO QAM for 30 Days, #30 09/04/18 Insulin Aspart (Novolog Mix ()) 100 Units/Ml Soln, 45 SC WITH BREAKFAST DINNE, EA 01/25/16 Loratadine* (Loratadine*) 10 Mg Tablet, 10 MG PO DAILY, #30 TAB 01/25/16 Furosemide* (Furosemide*) 40 Mg Tablet, 40 MG PO BID, TAB 01/25/16 Fenofibrate Nanocrystallized* (Fenofibrate*) 145 Mg Tablet, 145 MG PO DAILY, TAB 01/25/16 Docusate Sodium* (Docusate Sodium*) 100 Mg Capsule, 100 MG PO BID, #60 CAP 01/25/16 Clonidine Hcl* (Clonidine Hcl*) 0.1 Mg Tab, 0.1 MG PO DAILY PRN for PRN, TAB 01/25/16 Atenolol* (Atenolol*) 100 Mg Tablet, 100 MG PO DAILY, #30 TAB 01/25/16 Aspirin* (Aspirin* Chew) 81 Mg Tab.chew, 81 MG PO DAILY, TAB.CHEW 01/25/16 Amlodipine Besylate* (Norvasc*) 5 Mg Tablet, 5 MG PO DAILY, TAB 01/25/16 Trazodone Hcl* (Trazodone Hcl*) 50 Mg Tablet, 50 MG PO DAILY PRN for PRN, #30 TAB 01/25/16 Sevelamer Carbonate* (Renvela*) 800 Mg Tablet, 2.4 GM PO WITH MEALS, TAB 01/25/16 Allergies Allergies: Coded Allergies: No Known Drug Allergies (Unverified Allergy, Unknown, 01/08/17) PMhx/Soc History of Surgery: Yes (Catarac, Cholecystectomy, L Shoulder, L middle toe amputated, L HAND) Anesthesia Reaction: Yes Hx Neurological Disorder: No Hx Respiratory Disorders: No Hx Cardiac Disorders: Yes (Hyperlipidemia, HTN) Hx Psychiatric Problems: No Hx Miscellaneous Medical Probl: No (HD) Hx Alcohol Use: No Hx Substance Use: No Hx Tobacco Use: No Smoking Status: Never smoker FmHx No sudden cardiac or cancer Physical Exam Vitals Temp: 98.0. Pulse: 80. Respirations: 16. Blood pressure: 92/57. O2 saturation 98%. Repeat blood pressure in the ED is 138/74. Physical Exam GENERAL: Alert. No acute distress SKIN: Warm, dry, no rash, No petechiae. No ecchymoses or bruising. HEAD: Atraumatic NECK: Supple, nontender, full range of motion. No lymphadenopathy or masses. No JVD. EYES: MIHAI. EOMI. Conjunctiva, not injected, sclera anicteric. ENT: Mucous membranes are moist. Pharynx is clear without erythema or exudate. CARDIOVASCULAR: Regular rate and rhythm, S1, S2, 1/6 systolic murmur. No peripheral edema Pulses are 4+ in all extremities. RESPIRATORY: Breath sounds are equal bilaterally. No rales, rhonchi or wheezes. CHEST WALL: No tenderness or deformity. No ecchymosis or bruising GASTROINTESTINAL: Bowel sounds present, nondistended. Soft, nontender, no rebound or guarding. No masses or abnormal pulsations. BACK: No spinal tenderness or paraspinal muscle spasm. No costovertebral angle tenderness. MUSCULOSKELETAL: Normal ROM, no deformity. No calf swelling or tenderness. No erythema or induration. No palpable cords. Negative Homans sign NEUROLOGIC: Alert and oriented. CN II-XII grossly intact. Normal Speech. Normal gait. No focal neurological deficit observed. LYMPHATICS: No lymphadenopathy or lymphedema. PSYCHIATRIC: Cooperative. Appropriate mood and affect. Results 24 hrs Laboratory Tests Test 09/04/18 20:27 09/04/18 23:16 09/04/18 23:53 White Blood Count 9.0 10^3/ul Red Blood Count 3.52 10^6/ul Hemoglobin 11.2 g/dl Hematocrit 35.3 % Mean Corpuscular Volume 100.3 fl Mean Corpuscular Hemoglobin 31.8 pg Mean Corpuscular 31.7 g/dl Hemoglobin Concent Red Cell Distribution Width 13.4 % Platelet Count 200 10^3/UL Mean Platelet Volume 11.7 fl Immature Granulocytes % 0.300 % Neutrophils % 40.0 % Lymphocytes % 44.7 % Monocytes % 10.4 % Eosinophils % 3.8 % Basophils % 0.8 % Nucleated Red Blood Cells % 0.0 /100WBC Immature Granulocytes # 0.030 10^3/ul Neutrophils # 3.6 10^3/ul Lymphocytes # 4.0 10^3/ul Monocytes # 0.9 10^3/ul Eosinophils # 0.3 10^3/ul Basophils # 0.1 10^3/ul Nucleated Red Blood Cells # 0.0 10^3/ul Sodium Level 143 mmol/L Potassium Level 5.8 mmol/L Chloride Level 100 mmol/L Carbon Dioxide Level 29 mmol/L Anion Gap 14 Blood Urea Nitrogen 49 mg/dl Creatinine 8.73 mg/dl Est Glomerular Filtrat Rate mL/min 6 mL/min Glucose Level 63 mg/dl Calcium Level 8.0 mg/dl Bedside Glucose 89 mg/dL 326 mg/dL Current Medications Medications Dose Sig/Delroy Start Time Status Last (Trade) Ordered Route PRN Stop Time Admin Dose Reason Admin Albuterol 15 mg ONCE STAT 09/04/18 DC 09/04/18 (Proventil INH 22:38 23:13 0.5% (Neb)) 09/04/18 22:41 Insulin 10 unit ONCE STAT 09/04/18 DC 09/04/18 Human IVP 22:38 23:28 Regular 09/04/18 22:41 (Humulin R) Dextrose ONCE PRN 09/04/18 DC 09/04/18 (D50w IV DECREASED 23:00 23:30 Syringe) GLUCOSE 09/05/18 01:14 Dextrose 50 ml ONCE ONCE 09/04/18 DC 09/04/18 (D50w IV 23:00 23:30 Syringe) 09/04/18 23:01 Sodium 30 gm ONCE ONCE 09/05/18 DC 09/05/18 Polystyrene PO 00:30 00:18 Sulfonate 09/05/18 00:31 (Kayexalate) Procedures/MDM DOCUMENTS REVIEWED: ED nurse, prior records EKG: Time: 2306. Sinus rhythm. Ventricular rate 82. LVH with QRS widening. No criteria for ischemia. Normal AL interval. No ectopy. My Interpretation IMAGING: PROCEDURE: US Lower extremity arterial. CLINICAL INDICATION: Pain and claudication TECHNIQUE: Multiple sonographic images of the bilateral lower extremity arteries were obtained utilizing grayscale, color-flow and doppler imaging. The images were reviewed on a PACS workstation. COMPARISON: None. FINDINGS: There is no significant calcific plaque. Velocities and waveforms were obtained as described below. RIGHT LEG: Right common femoral artery: 151 cm/s; triphasic waveforms Right proximal superficial femoral artery: 110 cm/s; triphasic waveforms Right mid superficial femoral artery: 110 cm/s; triphasic waveforms Right distal superficial femoral artery: 142 cm/s; triphasic waveforms Right popliteal artery: 75 cm/s; triphasic waveforms Right posterior tibial artery: 62 cm/s; monophasic waveforms Right dorsalis pedis artery: 52 cm/s; monophasic waveforms LEFT LEG: Left common femoral artery: 133 cm/s; triphasic waveforms Left proximal superficial femoral artery: 120 cm/s; biphasic waveforms Left mid superficial femoral artery: 92 cm/s; biphasic waveforms Left distal superficial femoral artery: 73 cm/s; biphasic waveforms Left popliteal artery: 69 cm/s; biphasic waveforms Left posterior tibial artery: 77 cm/s; monophasic waveforms Left dorsalis pedis artery: 71 cm/s; monophasic waveforms IMPRESSION: 1. Unremarkable bilateral lower extremity arterial Doppler ultrasound. RPTAT:AAJJ Physician Kip Date Time Electronically viewed and signed by Physician Kip on 09/04/2018 22:03 CRITICAL CARE TIME: Due to the high probability of sudden clinically significant cardiovascular and hemodynamic deterioration, this patient with end-stage renal disease on dialysis and hyperkalemia required multiple, frequent reevaluations of vital signs and response to therapy including D50/insulin IV and nebulized b eta agonist.. Additional critical care time was spent in extensive review of prior medical records and interpretation of relevant clinical data including labs and imaging studies. TOTAL CRITICAL CARE TIME: 35 minutes not including other separately reportable procedures. MEDICAL DECISION MAKIN-year-old male history of hypertension, diabetes, hyperlipidemia and end-stage renal disease on dialysis Saturday, Saturday and Saturday referred to the ED for evaluation of bilateral leg pain and possible DVT. CBC reveals mild anemia but no leukocytosis. Chemistry significant for markedly elevated BUN/creatinine, hypo-glycemia and hyperkalemia. Physical exam is not consistent with DVT and venous Doppler to lower extremity not indicated. Possible arterial insufficiency and arterial Doppler performed and unremarkable. Patient has no signs of acute limb ischemia. Hyperkalemia treated aggressively with D50/insulin, nebulized beta agonist and Kayexalate. EKG is unremarkable for ischemia, heart block or dysrhythmia. No signs of volume overload. Patient has no indication for emergent dialysis and is stable for discharge with dialysis as scheduled tomorrow afternoon. Stable for discharge with precautionary instructions and outpatient follow-up as counseled. Though the patient's latest blood pressure was elevated (>120/80), the patient has a known history of hypertension and urged to pursue adjustment of their medical therapy within a week with their primary care physician. Please refer to the medication reconciliation form for the current list of hypertensive medications. Counseled patient regarding diagnostic workup, diagnosis and need for followup. Understands to return to ED if symptoms recur, worsen or any other concerns. Departure Diagnosis: Primary Impression: Bilateral leg pain Additional Impressions: Hyperkalemia End stage renal disease on dialysis Accelerated hypertension Condition: Stable (Improved) AISHA GREENE MD Sep 04, 2018 20:07
[2018-09-04] MEDS ORDERED: INSULIN REGULAR, HUMAN 100 UNIT/1 ML 3ML VIAL IVP STA (22:38)
[2018-09-04] MEDS ORDERED: ALBUTEROL 0.5% (NEB) 2.5 MG/0.5 ML AMP INH STA (22:38)
[2018-09-04] MEDS ORDERED: SERT50TA6 PO (22:49)
[2018-09-04] MEDS ORDERED: CLOS (22:49)
[2018-09-04] MEDS ORDERED: ROSU40TA22 PO (22:49)
[2018-09-04] MEDS ORDERED: OMEP20CA16 PO (22:49)
[2018-09-04] MEDS ORDERED: DEXTROSE 50% 50 ML SYRINGE IV PRN (23:00)
[2018-09-04] MEDS ORDERED: DEXTROSE 50% 50 ML SYRINGE IV ONE (23:00)
[2018-09-05] MEDS ORDERED: NA POLYST SULFON 15 GM/60 ML BTL PO ONE (00:30)
[2018-09-05 01:10] VITALS: BP 157/77; PULSE 80; RESP 16
== END 2018-09-05 01:14 | disposition home or self-care (01) ==
LOC: E/R 19:31
DX: M79.604 Pain in right leg (principal); I12.0 Hypertensive chronic kidney disease with stage 5 chronic kidney disease or end stage renal disease; N18.6 End stage renal disease; E11.22 Type 2 diabetes mellitus with diabetic chronic kidney disease; E87.5 Hyperkalemia; M79.605 Pain in left leg; Z99.2 Dependence on renal dialysis; Z79.4 Long term (current) use of insulin; Z79.82 Long term (current) use of aspirin
CPT/HCPCS: 80048; 82962; 85025; 93005; 93922; 94644; 96374; 96375; 99285; J1815